=== PATIENT | female | born 1980 | race Caucasian/White ===

== ENCOUNTER 2018-08-18 03:55 | Emergency (ER) | payer MEDICAID ==
[~2018-08-18] VITALS: Wt 82.1 kg
[~2018-08-18 03:55] MED LIST: ACET1TAB40 PO; CEPH-443 PO; DENIES; IBUP-1542 PO
[2018-08-18] MEDS ORDERED: SOD CHLORIDE 0.9% 500 ML IV STA (04:08)
[2018-08-18 05:30] VITALS: BP 126/81; PULSE 69; RESP 23
--- NOTE | 2018-08-18 05:37 | ERD ---
ER Documentation Chief Complaint Chief Complaint chest pain/sob x 4 hours, states 22 weeks . denies abd pain/vb HPI This is a 38-year-old female who comes in clinically today with right upper quadrant pain with mild associated nausea. The pain is not right upper quadrant is worse with movement and after that she had a greasy meal. Patient denies a known history of gallstones. Denies fevers chills or nausea or vomiting. ROS All systems reviewed and are negative except as per history of present illness. Medications Home Meds Active Scripts Ibuprofen* (Motrin*) 600 Mg Tab, 600 MG PO Q6H PRN for PAIN, #20 TAB Prov:JORDON DANG MD 05/08/15 Acetaminophen-Codeine* (Acetaminophen-Cod #3*) 300-30 Mg Tab, 1 TAB PO Q4H PRN for PAIN, #10 TAB Prov:JORDON DANG MD 05/08/15 Cephalexin* (Keflex*) 500 Mg Capsule, 500 MG PO QID for 5 Days, CAP Prov:JORDON DANG MD 05/08/15 Reported Medications [Denies] No Conflict Check 03/18/12 Allergies Allergies: Coded Allergies: No Known Allergy (Verified , 05/08/15) PMhx/Soc History of Surgery: No Anesthesia Reaction: No Hx Neurological Disorder: No Hx Respiratory Disorders: Yes (ASTHMA) Hx Cardiac Disorders: No Hx Psychiatric Problems: No Hx Miscellaneous Medical Probl: No Hx Alcohol Use: No Hx Substance Use: No Hx Tobacco Use: No Smoking Status: Never smoker Physical Exam Vitals Vital Signs Date Temp Pulse Resp B/P (MAP) Pulse Ox O2 O2 Flow FiO2 Time Delivery Rate 08/18/18 71 19 122/80 99 Room Air 05:00 (94) 08/18/18 97.1 72 18 135/82 100 Room Air 04:12 (99) 08/18/18 Nasal 04:12 Cannula 08/18/18 97.1 82 18 142/80 100 03:58 (100) Physical Exam Const: No acute distress Head: Atraumatic Eyes: Normal Conjunctiva ENT: Normal External Ears, Nose and Mouth. Neck: Full range of motion. No meningismus. Resp: Clear to auscultation bilaterally Cardio: Regular rate and rhythm, no murmurs Abd: Soft, non tender, non distended. Normal bowel sounds Skin: No petechiae or rashes Back: No midline or flank tenderness Ext: No cyanosis, or edema Neur: Awake and alert Psych: Normal Mood and Affect Result Diagram: 08/18/1842008/18/18 042 Results 24 hrs Laboratory Tests Test 08/18/18 04:21 08/18/18 04:31 08/18/18 04:32 White Blood Count 7.2 10^3/ul Red Blood Count 4.39 10^6/ul Hemoglobin 11.2 g/dl Hematocrit 33.6 % Mean Corpuscular Volume 76.5 fl Mean Corpuscular Hemoglobin 25.5 pg Mean Corpuscular 33.3 g/dl Hemoglobin Concent Red Cell Distribution Width 19.8 % Platelet Count 231 10^3/UL Mean Platelet Volume 9.8 fl Immature Granulocytes % 1.300 % Neutrophils % 69.1 % Lymphocytes % 20.3 % Monocytes % 7.8 % Eosinophils % 1.1 % Basophils % 0.4 % Nucleated Red Blood Cells % 0.0 /100WBC Immature Granulocytes # 0.090 10^3/ul Neutrophils # 5.0 10^3/ul Lymphocytes # 1.5 10^3/ul Monocytes # 0.6 10^3/ul Eosinophils # 0.1 10^3/ul Basophils # 0.0 10^3/ul Nucleated Red Blood Cells # 0.0 10^3/ul Sodium Level 138 mmol/L Potassium Level 3.8 mmol/L Chloride Level 107 mmol/L Carbon Dioxide Level 21 mmol/L Anion Gap 10 Blood Urea Nitrogen 8 mg/dl Creatinine 0.31 mg/dl Est Glomerular Filtrat Rate mL/min > 60 mL/min Glucose Level 110 mg/dl Calcium Level 9.2 mg/dl Total Bilirubin 0.3 mg/dl Direct Bilirubin 0.00 mg/dl Indirect Bilirubin 0.3 mg/dl Aspartate Amino Transf (AST/SGOT) 20 IU/L Alanine 22 IU/L Aminotransferase (ALT/SGPT) Alkaline Phosphatase 94 IU/L Troponin I < 0.012 ng/ml B-Type Natriuretic Peptide 45 PG/ML Total Protein 7.0 g/dl Albumin 3.8 g/dl Globulin 3.20 g/dl Albumin/Globulin Ratio 1.18 POC Beta HCG, Qualitative POSITIVE Bedside Urine pH (LAB) 6.5 Bedside Urine Protein (LAB) Negative Bedside Urine Glucose (UA) Negative Bedside Urine Ketones (LAB) Negative Bedside Urine Blood Negative Bedside Urine Nitrite (LAB) Negative Bedside Urine Leukocyte Esterase Negative (L Current Medications Medications Dose Sig/Joe Start Time Status Last (Trade) Ordered Route PRN Stop Time Admin Dose Reason Admin Sodium 500 ml @ Q1H STAT 08/18/18 DC 08/18/18 Chloride 500 mls/hr IV 04:08 04:37 08/18/18 05:07 Procedures/MDM Medical decision making: This is a 38-year-old patient who is 22 weeks patient has a right upper quadrant abdominal pain symptomatic biliary colic. Pain is since resolved but at this point she is clinically stable for outpatient management. She is been advised vomiting nausea abdominal exams. Patient's gastrointestinal symptoms have stabilized while in the department. No evidence of severe dehydration, sepsis, or surgical abdomen. Extensive discussion with family and patient that occult disease cannot be ruled out. 8 hour recheck for repeat abdominal exam is planned. Departure Diagnosis: Primary Impression: Abdominal pain Abdominal location: unspecified location Qualified Codes: R10.9 - Unspecif ied abdominal pain CARINA CHRISTIAN Aug 18, 2018 05:37
[2018-08-18] MEDS ORDERED: FERR256T PO (06:45)
[2018-08-18] MEDS ORDERED: PREN-6 PO (06:45)
[2018-08-18] MEDS ORDERED: PREN-93 PO (07:53)
== END 2018-08-18 05:55 | disposition home or self-care (01) ==
LOC: E/R 03:55
DX: O26.892 Other specified pregnancy related conditions, second trimester (principal); R10.9 Unspecified abdominal pain; O99.512 Diseases of the respiratory system complicating pregnancy, second trimester; J45.909 Unspecified asthma, uncomplicated
CPT/HCPCS: 36415; 76705; 80053; 81003; 81025; 83880; 84484; 85025; 93005; 96360; J7040; Z7502

== ENCOUNTER 2018-08-18 06:02 | Outpatient (CLI) | payer MEDICAID ==
[~2018-08-18] VITALS: Ht 160 cm; Wt 82.3 kg
[2018-08-18] MEDS ORDERED: FERR256T PO (06:45)
[2018-08-18] MEDS ORDERED: PREN-6 PO (06:45)
[2018-08-18 06:46] VITALS: Ht 160 cm; Wt 82.3 kg
[2018-08-18] MEDS ORDERED: PREN-93 PO (07:53)
--- NOTE | 2018-08-18 08:11 | TRIAGE ---
OB Triage Datetime Report Generated by CPN: 08/18/2018 08:11 Datetime: 08/18/2018 08:00 Stage of : OB Triage Maternal Assessment Level of Consciousness: Fully Conscious DTR's/Clonus: DTRs 1+ Headache: Denies Breath Sounds, Left: Clear and Equal Breath Sounds, Right: Clear and Equal Nausea/Vomiting: Denies RUQ Epigastric Pain: Denies Labor Evaluation Frequency: NONE Monitor Mode: External Resting Tone [place]: Relaxed Heart Rate FHR Baseline Rate: 135 Monitor Mode: External US Variability: Moderate 6-25 bpm Accelerations: 10X10 Category: Category I Vaginal Exam Membrane Status: Intact Datetime: 08/18/2018 07:13 Maternal Assessment Level of Consciousness: Fully Conscious DTR's/Clonus: DTRs 1+ Headache: Denies Blurred Vision: No Respiratory Effort: Unlabored Breath Sounds, Left: Clear and Equal Breath Sounds, Right: Clear and Equal Nausea/Vomiting: Denies RUQ Epigastric Pain: Denies Facial Edema: None Monitor Mode: External Resting Tone [place]: Relaxed Heart Rate FHR Baseline Rate: 135 Monitor Mode: External US Variability: Moderate 6-25 bpm Accelerations: 10X10 Category: Category I Vaginal Exam Membrane Status: Intact Datetime: 08/18/2018 06:48 Time of Arrival: 08/18/2018 06:02 EGA: 21.5 Arrived By: Wheelchair Arrived From: Emergency Dept Chief Complaint: CAME IN FOR CHEST PAIN IN ER, CLEARED BY THEM, WANTS L_D TO CHECK BABY, DENIES ABD PAIN Movement: Present Contractions: Denies/Absent Rupture of Membranes: Denies Vaginal Discharge: Denies Patient Complaints: Other Time Provider Notified: 08/18/2018 07:10 Provider Notified: JOSS Initial Plan: EFM, ASSESSMENT, CALL MD FOR ORDERS Datetime: 08/18/2018 06:45 Assessment Type: Triage Maternal Assessment Level of Consciousness: Fully Conscious DTR's/Clonus: DTRs 2+; No Clonus Headache: Denies Blurred Vision: No Respiratory Effort: Unlabored; Regular Rhythm; Equal Expansion Breath Sounds, Left: Clear and Equal Breath Sounds, Right: Clear and Equal Nausea/Vomiting: Denies RUQ Epigastric Pain: Denies Lower Extremities Edema: None Upper Extremities Edema: None Facial Edema: None Fall Risk Assessment History of Falling: (0) No Secondary Diagnosis: (0) No Ambulatory Aid: (0) Bedrest/Nurse Assist IV Therapy: (0) No Gait: (0) Normal/Bedrest/Immobile Mental Status: (0) Oriented to Own Ability Fall Score: 0 Fall Risk Score Definition: No Risk: No action required
--- NOTE | 2018-08-18 14:06 | PN ---
Triage Information Date/Time Reason for visit: Chest pain needs t be cleared by OB already cleared in ER Weeks of Gestation 21+ /Para n/a Diabetes: none Hypertention: none Objective Heart Rate: 140's Contractions: None Disposition: Discharge Assessment/Plan Ultrasound reviewed Incidental finding of Cx 2.8cm Questions answered Follow up with provider Precautions discussed ROX PENA M.D. Aug 18, 2018 14:06
== END 2018-08-18 08:04 | disposition home or self-care (01) ==
LOC: L-D 06:02 → OBT 06:02
PROVIDERS: ATTEND Obstetrics & Gynecology
DX: O26.892 Other specified pregnancy related conditions, second trimester (principal); R07.9 Chest pain, unspecified; O09.512 Supervision of elderly primigravida, second trimester; Z3A.21 21 weeks gestation of pregnancy
CPT/HCPCS: 76815; 76817; Z7500; G0463

== ENCOUNTER 2018-11-19 13:15 | Inpatient (IN) | payer MEDICAID ==
[~2018-11-19] VITALS: Ht 162.6 cm; Wt 79.6 kg
[~2018-11-19 13:15] MED LIST changes: -ACET1TAB40 PO; -CEPH-443 PO; -DENIES; +FERR256T PO; -IBUP-1542 PO; +PREN-93 PO
[2018-11-19 13:40] VITALS: Ht 162.6 cm; Wt 79.6 kg
[2018-11-19] MEDS ORDERED: URSO300C21 PO (16:38)
--- NOTE | 2018-11-19 17:51 | HP ---
Date/Time of Note Date/Time of Note DATE: 11/19/18 TIME: 17:46 OB - History Hx of Present Free Text/Dictation 38-year-old female Amandeepta 3 para 2 at 35 weeks and 4 days gestation was sent in from clinic because of observation of elevated bile acids Patient also was noticed to have elevated blood pressure and was sent into the hospital to rule out -induced hypertension Chief Complaint: Currently she denies headache blurred vision or epigastric pain Last Menstrual Period: Feb 27, 2018 Estimated Due Date: Dec 20, 2018 : 3 Para: 2 Care: Good Care Ultrasounds: Normal mid trimester US Obstetrical Complications: Other (Elevated bile acids, elevated inhibin) Medical Complications: None Past Family/Social History * Past Medical, Surgical, Family and Obstetric Histories reviewed from chart. Blood Type: O+ Rubella: immune RPR/VDRL: Negative GBS Status: Unknown HBsAG: Negative OB Admission Exam Physical Exam HEENT: WNL Heart: Rhythm Normal Lungs: Clear, Equal Abdomen: WNL Extremities: Normal Reflexes: Normal Cervical Dilatation: None Effacement: 0% Station: -3 Membranes: Intact Heart Rate: 140's Accelerations: Accelerations Present Decelerations: No Decelerations Varibility: Marked Contractions on Admission: 6-10 Minutes Apart Last 72 hours Lab Results CBC & BMP 11/19/18 15:22 Liver Function Test 11/19/18 15:22 Alanine Aminotransferase (ALT/SGPT) 23 Albumin 3.4 Alkaline Phosphatase 166 H Aspartate Amino Transf (AST/SGOT) 28 Direct Bilirubin 0.00 Total Protein 6.2 OB Assessment/Plan Other Assessment: Possible contractions patient was noticed to have uterine contractions every 3 -5 to 10 minutes Possible -induced hypertension. Mild elevation of blood pressure with 1+ proteinuria noticed Cholestasis of Elevated inhibin Other plan: 24-hour urine collection for protein and creatinine clearance Continue to observe patient in hospital Steroids Consult perinatology history possible delivery THAI HARRIS MD Nov 19, 2018 17:51
[2018-11-19] MEDS ORDERED: TERBUTALINE 1 MG/ML INJ SC ONE (18:00)
[2018-11-19] MEDS: LACTATED RINGER'S 1,000 ML IV SCH ×2 (18:13→19:50)
[2018-11-19] MEDS: BETAMET NA PHOS/AC(6 MG/ML) 2 ML INJ SYG IM SCH (19:53)
[2018-11-19] MEDS ORDERED: URSODIOL 300 MG CAP PO SCH (21:00)
[2018-11-19] MEDS: URSODIOL 300 MG CAP PO SCH (21:38)
[2018-11-20] MEDS: LACTATED RINGER'S 1,000 ML IV SCH ×2 (03:53→12:34)
[2018-11-20] MEDS ORDERED: PRENATAL VITAMIN PO SCH (09:00)
[2018-11-20] MEDS: URSODIOL 300 MG CAP PO SCH ×3 (09:11→21:02)
--- NOTE | 2018-11-20 16:34 | DS ---
Date/Time of Note Date/Time of Note Home with follow-up in NST following day DATE: 11/20/18 TIME: 16:33 Obstetrical Discharge Record Final Diagnosis Final Diagnosis: not delivered Other Final Diagnosis Cholestasis, possible mild -induced hypertension Complications Preg induced Hypertension, Other (Cholestasis) Condition on Discharge Physical Assessment Voiding: Yes Bowel Movement: Yes Breast: Soft, non-tender, Filling Fundus: Other () Abdomen and Incision: Abdomen is gravid fundal height is 36 heart tones are reactive Calf Tenderness: No Patient Condition: Good THAI HARRIS MD Nov 20, 2018 16:34
--- NOTE | 2018-11-20 16:35 | QN ---
Documentation Comment Consulted perinatology over the phone and recommended delivery at 37 weeks with follow-up with antepartum testing unit twice a week until THAI HARRIS MD Nov 20, 2018 16:35
--- NOTE | 2018-11-20 16:36 | PD.PPDC ---
MRI SPECIALIST Discharge Instruction Provider Information Physician Information 38-year-old female cholestasis was admitted for PIH evaluation Diagnosis Iqcew6Vq Final Diagnosis: [id number] Cholestasis of and probable mild -induced hypertension Condition Rgaza2Ey Patient Condition: Jsdle5q Good Diet Xrabh6Du Diet: Lcssu4w Resume Regular Diet Activity/Restrictions Qfezf7Mz Activity: Kfqge6s Bedrest May Shower Iqjyr0Wb Restrictions: Mbfbj4n No Exercising No Lifting Minimize Walking Follow-up Follow-up with Physician: 1, Day/Days (In antepartum testing unit) Return to clinic for Oynms4Jc OB Instructions: Yuctz5y Blurried Vision Headache (And epigastric pain) Comment: Refer to OB triage for headache blurred vision epigastric pain decreased movement and simply not feeling well THAI HARRIS MD Nov 20, 2018 16:36
[2018-11-20] MEDS: BETAMET NA PHOS/AC(6 MG/ML) 2 ML INJ SYG IM SCH (20:00)
== END 2018-11-20 22:30 | disposition home or self-care (01) | DRG 831 ==
LOC: OBT 13:15 → L-D 13:29 → OBT 17:45 → L-D 17:45
PROVIDERS: ADMIT Obstetrics & Gynecology; ATTEND Obstetrics & Gynecology
DX: O26.613 Liver and biliary tract disorders in pregnancy, third trimester (principal); K83.1 Obstruction of bile duct; Z3A.35 35 weeks gestation of pregnancy; O13.3 Gestational [pregnancy-induced] hypertension without significant proteinuria, third trimester
CPT/HCPCS: 36415; 76815; 76818; 80053; 81001; 82575; 84156; 84560; 85025; 85610; 85730; 87086; G0463; J0702; J3105; J7120

== ENCOUNTER 2018-12-01 08:00 | Inpatient (IN) | payer MEDICAID ==
[~2018-12-01] VITALS: Ht 160 cm; Wt 87.2 kg
[~2018-12-01 08:00] MED LIST changes: +IBUP-1542 PO; +LABE200T25 PO; +URSO300C21 PO
[2018-12-01 09:51] VITALS: Ht 160 cm; Wt 87.2 kg
[2018-12-01 09:52] VITALS: BP 153/84; PULSE 71; RESP 18
[2018-12-01] MEDS ORDERED: IBUPROFEN 600 MG TAB PO PRN (11:00)
[2018-12-01] MEDS ORDERED: METHYLERGONOVINE 0.2 MG INJ IM PRN (11:00)
[2018-12-01] MEDS ORDERED: BUTORPHANOL 2 MG INJ IV PRN ×2 (11:00)
[2018-12-01] MEDS ORDERED: OXYTOCIN 30 UNITS/LR 500 ML IV PRN (11:00)
[2018-12-01] MEDS ORDERED: AMPICILLIN 2 GM/NS (PMX) 100 ML IV ONE (11:00)
[2018-12-01] MEDS ORDERED: LIDOCAINE 1% (MPF) 30 ML INJ INJ PRN (11:00)
[2018-12-01] MEDS ORDERED: CARBOPROST 250 MCG INJ IM PRN (11:00)
[2018-12-01] MEDS ORDERED: MINERAL OIL LIGHT 10 ML VIAL TOP ONE (11:00)
[2018-12-01] MEDS ORDERED: MISOPROSTOL 200 MCG TAB PR PRN (11:00)
[2018-12-01] MEDS ORDERED: OXYTOCIN 30 UNITS/LR 500 ML IV SCH ×2 (11:00)
[2018-12-01] MEDS: MISOPROSTOL 50 MCG CAPSULE PO SCH ×3 (11:38→19:39)
[2018-12-01] MEDS: LACTATED RINGER'S 1,000 ML IV SCH ×2 (11:38→18:49)
[2018-12-01] MEDS: URSODIOL 300 MG CAP PO SCH ×2 (13:06→21:26)
--- NOTE | 2018-12-01 13:13 | NSTRPT ---
NST Information Datetime Report Generated by CPN: 12/01/2018 13:12 Datetime: 11/28/2018 10:35 NST Information EGA: 36.6 Test Number: 10 Time on Monitor: 11/28/2018 10:59 Time off Monitor: 11/28/2018 11:20 NST Duration (Min): 21 Reason for NST: Other Reason for NST Other: Elevated Inhibin, Positive T21/Neg NIPT Test and Monitor Explained: Monitor Explained; Test Explained; Verbalized Understanding Pulse: 75 Resp: 18 SBP: 132 DBP: 85 Test Evaluation NST Interventions: None Patient States Movement: Present Contraction Frequency: x1/120/mild/pain level 0 FHR Baseline : 145 Variability: Moderate 6-25bpm Accelerations: 15X15 Decelerations: None FHR Category: Category I NST Results: Reactive Comments: PT TO U/S karl 15.1 cm cephalic Repeat BP 129/79 Denies PARKINSON, swelling, epigastric pain or blurred vision. Reflexes 2+ Scheduled for induction 8/5 @ 0800 Electronically Signed By E-Signature: with User ID: [id number] Datetime: 11/25/2018 10:00 NST Information EGA: 36.3 Test Number: 9 Time on Monitor: 11/25/2018 10:47 Time off Monitor: 11/25/2018 11:10 NST Duration (Min): 23 Reason for NST: Other Reason for NST Other: Elevated Inhibin, Positive T21/Neg NIPT Test and Monitor Explained: Monitor Explained; Test Explained; Verbalized Understanding Pulse: 66 Resp: 18 SBP: 126 DBP: 77 Test Evaluation NST Interventions: None Patient States Movement: Present Contraction Frequency: NONE FHR Baseline : 150 Variability: Moderate 6-25bpm Accelerations: 15X15 Decelerations: None FHR Category: Category I NST Results: Reactive Comments: To u/s KARL 12.7 CM CEPHALIC Electronically Signed By E-Signature: with User ID: [id number] Datetime: 11/21/2018 10:14 NST Information EGA: 35.6 NST Duration (Min): 24 Datetime: 11/18/2018 10:11 NST Information EGA: 35.3 NST Duration (Min): 39 Datetime: 11/14/2018 09:37 NST Information EGA: 34.6 NST Duration (Min): 33 Datetime: 11/11/2018 09:10 NST Information EGA: 34.3 NST Duration (Min): 30 Datetime: 11/07/2018 10:10 NST Information EGA: 33.6 NST Duration (Min): 30 Datetime: 11/04/2018 08:56 NST Information EGA: 33.3 NST Duration (Min): 28 Datetime: 10/31/2018 10:00 NST Information EGA: 32.6 NST Duration (Min): 38 Datetime: 10/28/2018 09:02 NST Information EGA: 32.3 NST Duration (Min): 20
[2018-12-01] MEDS: LABETALOL 200 MG TAB PO SCH ×2 (14:25→21:27)
[2018-12-01] MEDS ORDERED: AMPICILLIN 1 GM/NS (PMX) 50 ML IV SCH (15:00)
--- NOTE | 2018-12-01 19:27 | HP ---
Date/Time of Note Date/Time of Note DATE: 12/01/18 TIME: 19:23 OB - History Hx of Present Free Text/Dictation 38-year-old female 3 para 2 at 37+ weeks gestation was admitted for induction of labor because of cholestasis Patient also was noticed to have elevated blood pressure and was started on magnesium sulfate for seizure prophylaxis Chief Complaint: She currently is denying headache blurred vision or epigastric Last Menstrual Period: Feb 27, 2018 Estimated Due Date: Dec 20, 2018 : 3 Para: 2 Care: Good Care Obstetrical Complications: Other (Advanced maternal age and cholestasis) Medical Complications: None Past Family/Social History * Past Medical, Surgical, Family and Obstetric Histories reviewed from chart. Blood Type: O+ Rubella: immune RPR/VDRL: Negative GBS Status: Negative HBsAG: Negative OB Admission Exam Vital Signs Vital Signs Vital Signs Date Temp Pulse Resp B/P (MAP) Pulse Ox O2 O2 Flow FiO2 Time Delivery Rate 12/01/18 98.6 71 18 153/84 09:52 (107) Physical Exam HEENT: WNL Heart: Rhythm Normal Lungs: Clear, Equal Abdomen: WNL Extremities: Normal Reflexes: Normal Cervical Dilatation: None Effacement: 0% Station: -3 Membranes: Intact Heart Rate: 140's Accelerations: Accelerations Present Decelerations: No Decelerations Varibility: Marked Contractions on Admission: None Last 72 hours Lab Results CBC & BMP 12/01/18 10:36 Liver Function Test 12/01/18 10:36 Alanine Aminotransferase (ALT/SGPT) 24 Albumin 3.4 Alkaline Phosphatase 182 H Aspartate Amino Transf (AST/SGOT) 30 Direct Bilirubin 0.00 Total Protein 6.4 OB Assessment/Plan Reason for admission: induction of labor, other (Cholestasis of ) Other Assessment: 37+ weeks gestation Cholestasis of Possible -induced hypertension Other plan: Magnesium sulfate was started for seizure prophylaxis Start Cytotec initiation of induction THAI HARRIS MD Dec 01, 2018 19:26
[2018-12-01] MEDS ORDERED: MAGNESIUM SULFATE 20 GM/500 ML 500 ML IV SCH (19:45)
[2018-12-01] MEDS ORDERED: MAGNESIUM SULFATE 3 GM in DEXTROSE 5% 100 ML IVPB ONE (20:00)
[2018-12-01] MEDS ORDERED: CA GLUCONATE (GM) 10% 10ML INJ IV PRN (20:00)
[2018-12-02] VITALS (14 sets, daily range): BP systolic 119–157; BP diastolic 59–81; PULSE 78–88; RESP 16–18
[2018-12-02] MEDS: MISOPROSTOL 50 MCG CAPSULE PO SCH ×2 (00:14→05:15)
[2018-12-02] MEDS: LACTATED RINGER'S 1,000 ML IV SCH (04:19)
--- NOTE | 2018-12-02 07:27 | LDN ---
Date/Time of Note Date/Time of Note DATE: 12/02/18 TIME: 07:23 Delivery Summary of a viable baby girl weighing 3150 grams or 6# 15 oz, 18.75" long, and with Apgars of 8/9. Weeks of Gestation 37w 4d Placenta Delivered: Spontaneously Meconium: none Episiotomy: No Perineal laceration: 2 Laceration repair: 2nd degreeperineal laceration repaired with 2-0 chromic. Anesthesia type: Local Estimated blood loss: 300 Sponge & Needle done & correct: Yes All needle counts correct: Yes Any foreign bodies felt in the: No (vagina) Infant Delivery Information Sex Sex: female Apgars 1 Minute: 8 5 Minute: 9 Suctioning Nose & mouth suctioned at caden: Yes Delee suction performed: No Umbilical Cord Umbilical cord with: 3 Vessels Cord presentations: no nuchal cord Cord Blood was obtained: Yes Mother & Baby Disposition Disposition Mom & Baby to Maternity; Good: Yes Baby to NICU: No YODIT JO MD Dec 02, 2018 07:27
[2018-12-02] MEDS ORDERED: HYDROCODONE/APAP (5/325) TAB PO PRN ×3 (07:30→10:30)
[2018-12-02] MEDS ORDERED: OXYTOCIN 30 UNITS/LR 500 ML IV PRN ×2 (07:30→10:30)
[2018-12-02] MEDS ORDERED: MISOPROSTOL 200 MCG TAB PR PRN ×2 (07:30→10:30)
[2018-12-02] MEDS ORDERED: CA GLUCONATE (GM) 10% 10ML INJ IV PRN (07:30)
[2018-12-02] MEDS ORDERED: LANOLIN HPA 1 PKT TOP PRN ×2 (07:30→10:30)
[2018-12-02] MEDS ORDERED: METHYLERGONOVINE 0.2 MG INJ IM PRN ×2 (07:30→10:30)
[2018-12-02] MEDS ORDERED: NACL 0.9% 3 ML SYG IV SCH ×2 (07:30)
[2018-12-02] MEDS ORDERED: CARBOPROST 250 MCG INJ IM PRN ×2 (07:30→10:30)
[2018-12-02] MEDS: MAGNESIUM SULFATE 20 GM/500 ML 500 ML IV SCH ×2 (08:58→21:02)
[2018-12-02] MEDS: LABETALOL 200 MG TAB PO SCH ×2 (09:06→21:06)
[2018-12-02] MEDS ORDERED: BENZOCAINE 20% 56 ML SPRAY TOP PRN (10:30)
[2018-12-02] MEDS ORDERED: WITCH HAZEL/GLYCERIN PAD PR PRN (10:30)
[2018-12-02] MEDS ORDERED: ZOLPIDEM 5 MG TAB PO PRN (10:30)
[2018-12-02] MEDS ORDERED: DIBUCAINE 1% 30 GM OINT TOP PRN (10:30)
[2018-12-02] MEDS: OXYTOCIN 30 UNITS/LR 500 ML IV SCH ×2 (11:22→17:27)
[2018-12-02] MEDS ORDERED: IBUPROFEN 600 MG TAB PO SCH (12:00)
[2018-12-02] MEDS: LACTATED RINGER'S 1,000 ML IV* SCH ×2 (16:15→18:04)
[2018-12-02] MEDS: IBUPROFEN 600 MG TAB PO SCH ×2 (16:15→17:33)
[2018-12-02] MEDS: MAGNESIUM HYDROXIDE 30ML CUP PO SCH (21:05)
[2018-12-02] MEDS: SENNA/DOCUSATE NA (8.6MG/50MG) TAB PO SCH (21:05)
[2018-12-03] VITALS (11 sets, daily range): BP systolic 110–140; BP diastolic 58–80; PULSE 78–92; RESP 18–20
[2018-12-03] MEDS: IBUPROFEN 600 MG TAB PO SCH ×5 (00:18→23:53)
[2018-12-03] MEDS: LACTATED RINGER'S 1,000 ML IV* SCH (02:14)
[2018-12-03] MEDS: MAGNESIUM HYDROXIDE 30ML CUP PO SCH ×2 (10:01→21:00)
[2018-12-03] MEDS: SENNA/DOCUSATE NA (8.6MG/50MG) TAB PO SCH ×2 (10:01→21:00)
[2018-12-03] MEDS: LABETALOL 200 MG TAB PO SCH ×2 (10:01→20:46)
--- NOTE | 2018-12-03 13:44 | PD.PPDC ---
LAMINATION ASSEMBLER Discharge Instruction Provider Information Physician Information 38-year-old female had induction of labor because of cholestasis at 37 weeks She was noticed to have high blood pressure on admission was started on labetalol and magnesium sulfate for seizure prophylaxis with diagnosis of PIH Diagnosis Doqku3Lt Final Diagnosis: Lmzou3f Status post vaginal delivery, -induced hypertension Condition Tzgyq7Rx Patient Condition: Srnyz7i Good Diet Uvnhe6Sj Diet: Ursys4a Resume Regular Diet Activity/Restrictions Ownce9Ev Activity: Muqnh4g Normal Activity May Shower Fylui5Lq Restrictions: Kuyvk4n Nothing in the Vagina Vwvjv3Ya Return to Work or School: Dozmp1p Jan 19, 2019 Follow-up Follow-up with Physician: 2, Day/Days (In clinic for blood pressure check) Return to clinic for Vqfvt8Pt OB Instructions: Wgnka1k Breast Tenderness Depression Blurried Vision Headache Comment: Pelvic rest no hard activity for 2 months THAI HARRIS MD Dec 03, 2018 13:44
--- NOTE | 2018-12-03 13:48 | DS ---
Date/Time of Note Date/Time of Note Home next day DATE: 12/03/18 TIME: 13:46 Obstetrical Discharge Record Final Diagnosis Final Diagnosis: Term delivered Other Final Diagnosis Status post vaginal delivery -induced hypertension Status post cholestasis Vaginal Delivery Obstetrical Delivery: Spontaneous, Laceration, Repaired Complications Preg induced Hypertension, Other (Cholestasis of ) Augmentation: No Induction: Yes Condition on Discharge Physical Assessment Last Vitals: See nurse's notes Voiding: Yes Bowel Movement: Yes Breast: Soft, non-tender, Filling Fundus: Firm Abdomen and Incision: Abdomen is soft with firm fundus Episiotomy: Perineum is healing well and appears clean Calf Tenderness: No Patient Condition: Good THAI HARRIS MD Dec 03, 2018 13:48
[2018-12-04 04:15] VITALS: BP 130/69; PULSE 89; RESP 18
[2018-12-04] MEDS: IBUPROFEN 600 MG TAB PO SCH ×2 (06:06→12:17)
[2018-12-04] MEDS ORDERED: VARICELLA VACCINE LIVE/PF 1,350 UNIT/0.5 ML ML SC* ONE (09:00)
[2018-12-04] MEDS ORDERED: DIPHTH/TET/ACEL PERTUSS (ADULT) 0.5 ML VIAL IM* ONE (09:00)
[2018-12-04] MEDS: MAGNESIUM HYDROXIDE 30ML CUP PO SCH (09:00)
[2018-12-04] MEDS: SENNA/DOCUSATE NA (8.6MG/50MG) TAB PO SCH (09:00)
[2018-12-04] MEDS: LABETALOL 200 MG TAB PO SCH (09:40)
--- NOTE | 2018-12-05 15:27 | DELSUM ---
Delivery Summary A-C Datetime Report Generated by CPN: 12/05/2018 15:27 DELIVERY PERSONNEL Day Care Home Mother: Canutadelita Laquita MATERNAL INFORMATION Delivery Anesthesia: Local Medications in Delivery: LR with 30 units of pitocin Delivery QBL (ml): 300 Placenta Cultured: No Maternal Complications: Other Other Maternal Complications: hx of blood transfusion for anemia 4yrs ago RN Comments: choliostasis, high b/p w this LABOR SUMMARY EDC: 12/20/2018 00:00 No. Babies in Womb: 1 Attempted: No Labor Anesthesia: None LABOR INFORMATION Reason for Induction: Gest. HTN/PreEclam/Eclamp; Other Reason for Induction- Other: Cholestasis Onset of Labor: 12/01/2018 00:00 Complete Dilatation: 12/02/2018 06:50 Cervical Ripening Agents: Cytotec @ 50 mcg PO dose #5 Group B Beta Strep: Negative Antibiotics # of Doses: 1 Antibiotics Time of Last Dose: 12/01/2018 11:38 Steroids Given: Partial Course; >24Hs before Delivery Reason Steroids Not Administered: Not Applicable MEMBRANES Membranes Rupture Method: Artificial Rupture of Membranes: 12/02/2018 07:02 Length of Rupture (hr): 0.03 Amniotic Fluid Color: Clear Amniotic Fluid Amount: Moderate STAGES OF LABOR Stage 1 hr: 30 Stage 1 min: 50 Stage 2 hr: 0 Stage 2 min: 14 Stage 3 hr: 0 Stage 3 min: 2 Total Time in Labor hr: 31 Total Time in Labor min: 6 VAGINAL DELIVERY Episiotomy: None Laceration Extension: Second Degree Laceration Type: Perineal Laceration Repair: Yes Initial Vag Sponge Count: 10 Final Vag Sponge Count: 10 Initial Vag Sharps Count: 2 Final Vag Sharps Count: 2 Sponge Count Correct: Yes Sharps Count Correct: Yes BABY A INFORMATION Infant Delivery Date/Time: 12/02/2018 07:04 Method of Delivery: Vaginal Born in Route : No : N/A Forceps: N/A Vacuum Extraction: N/A Shoulder Dystocia : N/A SHOULDER DYSTOCIA BABY A Delivery Date/Time: 12/02/2018 07:04 PRESENTATION/POSITION BABY A Presentation: Cephalic Cephalic Presentation: Vertex Vertex Position: Left Occipital Anterior Breech Presentation: N/A PLACENTA INFORMATION BABY A Placenta Delivery Time : 12/02/2018 07:06 Placenta Method of Delivery: Spontaneous Placenta Status: Delivered SCORES BABY A Heart Rate 1 min: >100 bpm Resp Effort 1 min: Good Cry Reflex Irritability 1 min: Cough/Sneeze/Pulls Away Muscle Tone 1 min: Active Motion Color 1 min: Blue/Pale SCORE 1 MIN: 8 Heart Rate 5 min: >100 bpm Resp Effort 5 min: Good Cry Reflex Irritability 5 min: Cough/Sneeze/Pulls Away Muscle Tone 5 min: Active Motion Color 5 min: Body [place], Extremit Blue SCORE 5 MIN: 9 INFORMATION BABY A Gestational Age at Delivery: 37.2 Gestational Status: Early Term- 37- 38.6 Weeks Infant Outcome : Liveborn, with signs of life Condition : Stable Infant Sex: Female IDENTIFICATION/MEDS BABY A ID Band Number: [id number] ID Band Location: Right Leg; Left Arm Sensor Applied: Yes Sensor Number: [id number] Sensor Location : Cord Clamp Vitamin K Given : Not Given Erythromycin Given: Not Given WEIGHT/LENGTH BABY A Infant Birthweight (gm): 3150 Weight (lb): 6 Weight (oz): 15 Length (in): 18.75 Length (cm): 47.63 CORD INFORMATION BABY A No. Cord Vessels: 3 Nuchal Cord : N/A Cord Blood Taken: Yes Infant Suction: Mouth; Nose ASSESSMENT BABY A Infant Complications: None Infant Complications- Other: high b/p w , choleostasis, Physical Findings at Delivery: Within Normal Limits Respirations: Appears Normal Glass Glazier/ALS Called : No Care By: Cate. hannah CHAVIRA Transferred To: Remains with Mother
== END 2018-12-04 14:45 | disposition home or self-care (01) | DRG 805 ==
LOC: L-D 09:00 → PP1 12-02 16:04
PROVIDERS: ADMIT Obstetrics & Gynecology; ATTEND Obstetrics & Gynecology
PROC: 0KQM0ZZ Repair Perineum Muscle, Open Approach (ICD-10-PCS; 2018-12-01)
PROC: 10E0XZZ Delivery of Products of Conception, External Approach (ICD-10-PCS; principal; 2018-12-01 08:00)
DX: O26.62 Liver and biliary tract disorders in childbirth (principal); K83.1 Obstruction of bile duct; O13.4 Gestational [pregnancy-induced] hypertension without significant proteinuria, complicating childbirth; O70.1 Second degree perineal laceration during delivery; Z37.0 Single live birth; Z3A.37 37 weeks gestation of pregnancy
CPT/HCPCS: 76815; 76818; 80053; 81001; 83735; 84560; 85025; 85384; 85610; 85730; 86592; 86850; 86900; 86901; 87340; 90716; J0290; J0595; J2590; J3475; J7120